=== PATIENT | male | born 2000 | race Caucasian/White ===

== ENCOUNTER 2018-03-23 16:45 | Emergency (ER) | payer OTHER ==
[~2018-03-23] VITALS: Ht 177.8 cm; Wt 79.4 kg
[2018-03-23] MEDS ORDERED: MEDROLDOSEPACK PO (17:21)
[2018-03-23] MEDS ORDERED: TRAMADOL 50 MG50 MG PO (17:21)
[2018-03-23 17:42] VITALS: BP 129/87
== END 2018-03-23 17:43 | disposition home or self-care (01) ==
LOC: M.ERS 16:45
DX: S63.591A Other specified sprain of right wrist, initial encounter (principal); X50.9XXA Other and unspecified overexertion or strenuous movements or postures, initial encounter; Y93.89 Activity, other specified; Y92.89 Other specified places as the place of occurrence of the external cause; Y99.8 Other external cause status